=== PATIENT | female | born 1985 | race Caucasian/White ===

== ENCOUNTER → 2016-04-02 | Outpatient (CLI) | payer BC | END | disposition home or self-care (01) | LOC: C.LAB1850 11:34 | PROVIDERS: ATTEND Obstetrics & Gynecology | DX: O02.1 Missed abortion (principal) ==

== ENCOUNTER → 2016-06-21 | Outpatient (CLI) | payer BC ==
[~2016-06-21] MED LIST: FLUT0.15 NAE; PRENTAB26 PO; SERT-234 PO
[2016-06-21 17:35] LABS: URINE APPEARANCE CLEAR (CLEAR); URINE BILIRUBIN NEG (NEG); URINE COLOR YELLOW; URINE NITRITE NEG (NEG); URINE SPECIFIC GRAVITY 1.007 (1.000-1.030); UROBILINOGEN NEG (NEG)
[2016-06-21 17:36] LABS: MANUAL MICROSCOPIC REQUIRED? NO; REVIEW REQ? NO
== END | disposition home or self-care (01) ==
LOC: C.LABSPEC 17:16
PROVIDERS: ATTEND Obstetrics & Gynecology
DX: O09.299 Supervision of pregnancy with other poor reproductive or obstetric history, unspecified trimester (principal); Z3A.00 Weeks of gestation of pregnancy not specified

== ENCOUNTER → 2016-06-28 | Outpatient (CLI) | payer BC | LOC: C.PAPS 08:53 | PROVIDERS: ATTEND Obstetrics & Gynecology | DX: O09.299 Supervision of pregnancy with other poor reproductive or obstetric history, unspecified trimester (principal); Z3A.00 Weeks of gestation of pregnancy not specified ==

== ENCOUNTER → 2016-07-26 | Outpatient (CLI) | payer BC ==
[2016-07-26 12:26] LABS: BASO % 0.5 %; BASO ABS # 0.02 K/uL (0-0.2); COMPLETE YES; EOS % 1.2 %; HEMATOCRIT 37.4 % (37-47); IG% 0.2 %; LYMPH % 33.3 %; LYMPH ABS # 1.38 K/uL (1.2-3.4); MEAN CELL VOLUME 89.5 fL (80-100); MEAN CORPUSCULAR HEMOGLOBIN 30.9 pg (25-34); MEAN CORPUSCULAR HGB CONC 34.5 g/dl (32-36); MEAN PLATELET VOLUME 9.4 fL (7.4-10.4); NEUT % 57.8 %; PLATELET COUNT 200 K/uL (130-400); RED BLOOD COUNT 4.18 M/uL (4.2-5.4); WHITE BLOOD COUNT 4.15 K/uL (4.8-10.8)
[2016-07-29 12:10] LABS: CHLAMYDIA TRACH RNA*** NOT DETECTED (NOT DETECTED); GC (NEIS GONORRHOEAE)RNA** NOT DETECTED (NOT DETECTED)
== END | disposition home or self-care (01) ==
LOC: C.LAB1850 09:29
PROVIDERS: ATTEND Obstetrics & Gynecology
DX: O09.299 Supervision of pregnancy with other poor reproductive or obstetric history, unspecified trimester (principal)

== ENCOUNTER → 2016-08-12 | Outpatient (CLI) | payer BC ==
[2016-08-12 16:31] LABS: URINE APPEARANCE CLEAR (CLEAR); URINE BILIRUBIN NEG (NEG); URINE COLOR YELLOW; URINE NITRITE NEG (NEG); URINE SPECIFIC GRAVITY 1.014 (1.000-1.030); UROBILINOGEN NEG (NEG)
[2016-08-12 16:32] LABS: MANUAL MICROSCOPIC REQUIRED? NO; REVIEW REQ? NO
== END | disposition home or self-care (01) ==
LOC: C.LAB1850 14:50
PROVIDERS: ATTEND Obstetrics & Gynecology
DX: R39.9 Unspecified symptoms and signs involving the genitourinary system (principal)

== ENCOUNTER → 2016-08-23 | Outpatient (CLI) | payer BC ==
[2016-08-23 18:54] LABS: GTGD 50 Grams
== END | disposition home or self-care (01) ==
LOC: C.LAB1850 15:41
PROVIDERS: ATTEND Obstetrics & Gynecology
DX: O09.299 Supervision of pregnancy with other poor reproductive or obstetric history, unspecified trimester (principal); Z3A.00 Weeks of gestation of pregnancy not specified

== ENCOUNTER → 2016-11-22 | Outpatient (CLI) | payer BC ==
[2016-11-22 15:55] LABS: HEMATOCRIT 32.7 % (37-47)
[2016-11-22 16:32] LABS: GTGD 50 Grams
[2016-11-22 17:55] LABS: URINE APPEARANCE CLEAR (CLEAR); URINE BILIRUBIN NEG (NEG); URINE COLOR YELLOW; URINE NITRITE NEG (NEG); URINE PH 5.5 (4.5-7.5); URINE SPECIFIC GRAVITY 1.014 (1.000-1.030); UROBILINOGEN NEG (NEG)
[2016-11-22 17:57] LABS: MANUAL MICROSCOPIC REQUIRED? NO; REVIEW REQ? NO
== END | disposition home or self-care (01) ==
LOC: C.LAB1850 15:09
PROVIDERS: ATTEND Obstetrics & Gynecology
DX: O09.293 Supervision of pregnancy with other poor reproductive or obstetric history, third trimester (principal); Z3A.00 Weeks of gestation of pregnancy not specified

== ENCOUNTER → 2016-12-03 | Outpatient (CLI) | payer BC | END | disposition home or self-care (01) | LOC: C.LAB1850 08:19 | PROVIDERS: ATTEND Obstetrics & Gynecology | DX: O28.1 Abnormal biochemical finding on antenatal screening of mother (principal); Z3A.00 Weeks of gestation of pregnancy not specified ==

== ENCOUNTER 2016-12-07 14:54 | Outpatient (CLI) | payer BC ==
[2016-12-07] MEDS ORDERED: SERT-234 PO (16:09)
[2016-12-07] MEDS ORDERED: FLUT0.15 NAE (16:09)
[2016-12-07] MEDS ORDERED: PRENTAB26 PO (16:09)
== END 2016-12-07 15:26 | disposition home or self-care (01) ==
LOC: C.OPB 14:54 → C.LD 14:54 → C.OPB 15:26
PROVIDERS: ATTEND Obstetrics & Gynecology
DX: O26.853 Spotting complicating pregnancy, third trimester (principal); Z3A.30 30 weeks gestation of pregnancy

== ENCOUNTER 2017-02-14 21:47 | Inpatient (IN) | payer OTHER ==
[~2017-02-14] VITALS: Ht 162.6 cm; Wt 66.8 kg
[2017-02-14] MEDS ORDERED: LACTATED RINGER'S 1000ML 1,000 ML IV PRN (21:56)
[2017-02-14 22:12] LABS: HEMATOCRIT 36.3 % (37-47); HEMOGLOBIN 12.6 g/dL (12.0-16.0); MEAN CELL VOLUME 88.5 fL (80-100); MEAN CORPUSCULAR HEMOGLOBIN 30.7 pg (25-34); MEAN CORPUSCULAR HGB CONC 34.7 g/dl (32-36); MEAN PLATELET VOLUME 11.4 fL (7.4-10.4); PLATELET COUNT 158 K/uL (130-400); RED CELL DISTRIBUTION WIDTH CV 13.1 % (11.5-14.5); RED CELL DISTRIBUTION WIDTH SD 42.5 fL (36.4-46.3); WHITE BLOOD COUNT 6.49 K/uL (4.8-10.8)
[2017-02-14] MEDS ORDERED: PENICILLIN G POTASSIUM IV 6 MU in DEXTROSE 5% 250ML 250 ML IV ONE (22:15)
[2017-02-14] MEDS: LACTATED RINGER'S 1000ML 1,000 ML IV SCH (22:23)
[2017-02-14 22:37] VITALS: Ht 162.6 cm; Wt 66.8 kg
[2017-02-15] VITALS (7 sets, daily range): BP systolic 120–139; BP diastolic 79–88; PULSE 67–80; TEMP 36.5–36.6; O2SAT 96–97
[2017-02-15] MEDS ORDERED: BUPIVACAINE 0.25% 30 ML VIAL ONE (01:00)
[2017-02-15] MEDS ORDERED: FENTANYL CITRATE INJ 50 MCG/1 ML 2 ML VIAL ONE ×2 (01:01→13:26)
[2017-02-15] MEDS ORDERED: EpHEDrine SULFATE INJ 50 MG/ML AMP ONE (01:01)
[2017-02-15] MEDS ORDERED: FENTANYL 2MCG/ML ROPIV 1.25MG/ML 100ML BAG EPI ONE (01:01)
[2017-02-15] MEDS ORDERED: LACTATED RINGER'S 1000ML 500 ML IV PRN ×3 (02:06→14:43)
[2017-02-15] MEDS ORDERED: NALOXONE HCL INJ 1 MG in SODIUM CHLORIDE 0.9% 1000ML 1,000 ML IV PRN ×5 (02:06→14:43)
[2017-02-15] MEDS: PENICILLIN G POTASSIUM IV 3 MU in DEXTROSE 5% 100ML 100 ML IV PRN ×3 (02:14→10:33)
[2017-02-15] MEDS ORDERED: NALBUPHINE HCL INJ 10 MG/ML AMP IV PRN ×2 (02:15→14:45)
[2017-02-15] MEDS ORDERED: DiphenhydrAMINE HCL 50 MG/ML VIAL IV PRN ×2 (02:15→14:45)
[2017-02-15] MEDS ORDERED: NALOXONE HCL INJ 0.4 MG/1 ML VIAL/CARP IV PRN (02:15)
[2017-02-15] MEDS ORDERED: PROMETHAZINE HCL INJ 6.25 MG in SODIUM CHLORIDE 0.9% 50ML 50 ML IV PRN (02:15)
[2017-02-15] MEDS ORDERED: ONDANSETRON INJ 2 MG/ML 2 ML VIAL IV PRN ×2 (02:15→14:45)
[2017-02-15] MEDS ORDERED: EpHEDrine SULFATE INJ 50 MG/ML AMP IV PRN ×2 (02:15→14:45)
[2017-02-15] MEDS ORDERED: OXYTOCIN 30 UNITS/500ML NSS IV PRN (02:45)
[2017-02-15] MEDS ORDERED: OXYTOCIN 30 UNITS/500ML NSS IV ONE (03:27)
[2017-02-15] MEDS: FENTANYL 2MCG/ML ROPIV 1.25MG/ML 100ML BAG EPI PRN ×3 (06:04→10:18)
[2017-02-15] MEDS: LACTATED RINGER'S 1000ML 1,000 ML IV SCH ×2 (06:13→09:25)
[2017-02-15] MEDS ORDERED: CITRIC ACID/SODIUM CITRATE 15 ML UDC ONE (13:00)
[2017-02-15] MEDS ORDERED: LACTATED RINGER'S 1000ML 1,000 ML IV SCH ×2 (13:02→14:36)
[2017-02-15] MEDS ORDERED: CITRIC ACID/SODIUM CITRATE 15 ML UDC PO ONE (13:15)
[2017-02-15] MEDS ORDERED: CEFAZOLIN IV 2,000 MG in SYRINGE 0 ML IV ONE (13:15)
[2017-02-15] MEDS ORDERED: LIDOCAINE/EPINEPHRINE 2% 1:200,000 20 ML SDV ONE (13:23)
[2017-02-15] MEDS ORDERED: OXYTOCIN INJ 10 UNITS/ML VIAL ONE ×2 (13:24→14:26)
[2017-02-15] MEDS ORDERED: PHENYLEPHRINE 100MCG/ML 5ML SYR ONE (14:12)
[2017-02-15] MEDS ORDERED: MoRPHine SULFATE PF 1 MG/ML 10 ML AMP/VIAL ONE (14:13)
[2017-02-15] MEDS ORDERED: MIDAZOLAM HCL 1 MG/ML 2ML VIAL ONE (14:22)
[2017-02-15] MEDS ORDERED: OXYTOCIN INJ 30 UNITS in LACTATED RINGER'S 1000ML 1,000 ML IV SCH (14:36)
--- NOTE | 2017-02-15 14:38 | [facility] Post Operative Brief Note ---
Immediate Operative Summary Operative Date Feb 15, 2017. Pre-Operative Diagnosis [facility] @ Term, Labor, Deep Transverse arrest; Failure to Progress Post-Operative Diagnosis Same Procedure(s) Performed Primary Caesarean Section; Delivery of a live male infant Surgeon Dr Jackson Computer Repairer Surgeon(s) Caitlin Palencia RN Estimated Blood Loss 600 cc Findings LOT with left asynclitism. Normal ovaries and tubes. Specimens cord blood placenta-exam arterial and venous gases Complication(s) None Disposition L&D
[2017-02-15] MEDS ORDERED: SODIUM CHLORIDE 0.9% 1000ML 1,000 ML IV PRN (14:43)
[2017-02-15] MEDS ORDERED: NALOXONE HCL INJ 0.08 MG in SYRINGE 1.8 ML IV PRN (14:43)
[2017-02-15] MEDS ORDERED: DC INTRASPINAL MORPHINE SCH (14:45)
[2017-02-15] MEDS ORDERED: BENZOCAINE 20% AER SPR 82.5 GM CAN EXT PRN (14:45)
[2017-02-15] MEDS ORDERED: MoRPHine SULFATE PF 1 MG/ML 10 ML AMP/VIAL EPI PRN (14:45)
[2017-02-15] MEDS ORDERED: LANOLIN OINT EXT PRN (14:45)
[2017-02-15] MEDS ORDERED: HYDROCORTISONE ACETATE 25 MG SUPP PR PRN (14:45)
[2017-02-15] MEDS ORDERED: NO NARCOTICS OR SEDATIVES SCH (14:45)
[2017-02-15] MEDS ORDERED: PROMETHAZINE HCL INJ 25 MG in SODIUM CHLORIDE 0.9% 50ML 50 ML IV PRN (14:45)
[2017-02-15] MEDS ORDERED: NALOXONE HCL 0.4 MG/1 ML VIAL/CARP IV PRN (14:45)
[2017-02-15] MEDS ORDERED: SUPERCREAM 0.870 % 15GM JAR EXT PRN (14:45)
--- NOTE | 2017-02-15 14:46 | Anesthesia Procedure Note ---
Anesthesia Epidural Removal Nt Date & Time Feb 15, 2017 at 14:46 Vital Signs Pain Intensity: 0.0 Notes Mental Status: alert / awake / arousable, participated in evaluation Nausea / Vomiting: adequately controlled Pain: adequately controlled Airway Patency, RR, SpO2: stable & adequate BP & HR: stable & adequate Hydration State: stable & adequate Neuraxial Anesthesia: was administered Anesthetic Complications: no major complications apparent, pt satisfied with anesthetic care Epidural: removed without complications, with tip intact
[2017-02-15] MEDS ORDERED: DIPHTHERIA/TETANUS/PERTUSSIS 0.5 ML SYR/VIAL IM. ONE (15:15)
--- NOTE | 2017-02-15 15:16 | Anesthesiology Progress Note ---
Anesthesia Post Op Note Date & Time Feb 15, 2017 at 15:15 Vital Signs Pain Intensity: 0.0 Notes Mental Status: alert / awake / arousable, participated in evaluation Pt Amnestic to Procedure: No Nausea / Vomiting: adequately controlled Pain: adequately controlled Airway Patency, RR, SpO2: stable & adequate BP & HR: stable & adequate Hydration State: stable & adequate Neuraxial Anesthesia: was administered, sensory block is resolving Anesthetic Complications: no major complications apparent
[2017-02-15] MEDS: SIMETHICONE 80 MG CHEW PO SCH ×2 (17:00→20:24)
[2017-02-15] MEDS: KETOROLAC TROMETHAMINE 30 MG/ML VIAL IV. PRN (18:14)
--- NOTE | 2017-02-15 19:37 | DELIVERY SUMMARY ---
DATE OF OPERATION: 02/15/2017 PREOPERATIVE DIAGNOSES: 1. Rob intrauterine at 40 and 4/7 weeks. 2. Onset of labor. 3. Deep transverse arrest. 4. Failure to progress. POSTOPERATIVE DIAGNOSES: Same. PROCEDURE: Primary low transverse section with 2-layer uterine closure and delivery of a live male . SURGEON: Gena Jackson MD CHIP PERSON: Caitlin Christian RN ESTIMATED BLOOD LOSS: 600 mL. FINDINGS: in LOT presentation with left asynclitism, normal ovaries and tubes. SPECIMENS: Cord blood and placenta for exam as well as cord gases. COMPLICATIONS: None. DISPOSITION: Stable in labor and delivery. DESCRIPTION: Tomasa is 31-year-old G2, P0-0-1-0, who was admitted by my partner Dr. Sanchez with labor. I assumed care of patient as she was becoming completely dilated. She did begin her second stage of labor at about 9:30 in the morning. She pushed very well for 3 hours. Unfortunately, the infant rotated from LOP presentation to LOT presentation and stayed there. She was unable to effect delivery despite 3 hours of maximal maternal effort. heart tones were category 2 throughout most of her second stage, however, maintained at essentially normal baseline and moderate variability with accels to the end. Given this infant's presentation, I did not feel that operative delivery would very likely to be successful, but we did discuss that option as well as moving directly to and patient elected to move directly to . She was therefore brought to the operating room, placed on the table in the supine position with a leftward tilt, prepped and draped in standard sterile fashion, and a hard timeout was taken prior to beginning. Please note that before beginning the section, there was already noted to be che Canelo-Aid colored urine in the Barksdale catheter tubing, we anticipate that this is because of 3 hours of pushing with a certain amount of ureteral trauma. Once adequate anesthesia was demonstrated, a Pfannenstiel incision was then made, this was carried down sharply through the subcutaneous tissue to the fascia which was incised and then extended using Amador scissors. The fascia was sharply and bluntly dissected off the underlying rectus, which were naturally . The peritoneum was then entered bluntly. A bladder retractor was placed and a bladder flap was created. A lower transverse uterine incision was made. Upon entry to the cavity, thick meconium was encountered. This was a surprise, as fluid had been clear as seen from the vaginal approach at the time we moved patient to the operating room. The 's right shoulder was immediately beneath the hysterotomy. The infant's right ear was encountered as my hand moved down into the lower uterine segment and with some effort I was able to elevate the head from the maternal pelvis and elevated through the hysterotomy. Of note, at times during this effort, the infant's right hand delivered through the hysterotomy and had to be gently replaced in a physiologic manner. Once the was delivered using mild fundal pressure, the cord was doubly clamped and cut. The made respiratory efforts while it was still on the sterile field and Dr. Amirah Wren was scrubbed and working with the before it was even clamped and cut. The infant was then taken to the warmer by Dr. Wren. The placenta after the cord gases were isolated the placenta was then manually extracted. The uterus was gently exteriorized and the hysterotomy was closed in a typical 2-layer fashion with 1 Vicryl suture in a running locked manner with an imbricating second layer. At the completion of closure, the hysterotomy was hemostatic and well approximated. The uterus was anteflexed and the posterior gutter was cleared of all clot and debris with gentle irrigation. Both ovaries and tubes were seen to be normal. The uterus was then reapproximated to the abdomen. The lateral gutters were cleared of all clot and debris, and the hysterotomy was examined one final time and found to be again hemostatic and well approximated. The rectus muscles were allowed to fall together naturally and the fascia was then closed using a 1 Vicryl in a running nonlocked manner. The subcutaneous tissue was then copiously irrigated and closed with 3-0 chromic with the skin being closed in 4-0 Monocryl, and a Dermabond dressing was then applied. The Barksdale continued to be draining red-tinged urine as had been seen prior to the beginning of the surgery. The patient was then transferred in stable condition to the recovery room. I attest to the content of the Intraoperative Record and any orders documented therein. Any exception s are noted below.
[2017-02-15] MEDS: DOCUSATE SODIUM 100 MG CAP PO SCH (20:24)
[2017-02-16] VITALS (11 sets, daily range): BP systolic 110–133; BP diastolic 65–87; PULSE 68–86; TEMP 36.5–36.8; O2SAT 97–100
[2017-02-16 06:53] LABS: HEMATOCRIT 30.6 % (37-47); HEMOGLOBIN 10.5 g/dL (12.0-16.0); MEAN CORPUSCULAR HEMOGLOBIN 30.5 pg (25-34); MEAN CORPUSCULAR HGB CONC 34.3 g/dl (32-36); MEAN PLATELET VOLUME 10.8 fL (7.4-10.4); PLATELET COUNT 104 K/uL (130-400); RED CELL DISTRIBUTION WIDTH CV 13.3 % (11.5-14.5); RED CELL DISTRIBUTION WIDTH SD 43.1 fL (36.4-46.3)
[2017-02-16 07:22] LABS: BASO % 0.2 %; BASO ABS # 0.02 K/uL (0-0.2); IG# 0.01 K/uL (0.00-0.02); LYMPH % 17.6 %; MONO % 4.1 %; MONO ABS # 0.42 K/uL (0.11-0.59); NEUT ABS # 7.85 K/uL (1.4-6.5)
[2017-02-16] MEDS: SIMETHICONE 80 MG CHEW PO SCH ×4 (07:34→20:10)
[2017-02-16] MEDS: FERROUS SULFATE 325 MG TAB PO SCH ×2 (07:34→07:56)
[2017-02-16] MEDS: DOCUSATE SODIUM 100 MG CAP PO SCH ×2 (07:34→20:10)
[2017-02-16] MEDS: PRENATAL VITAMIN TAB PO SCH (07:34)
[2017-02-16] MEDS: SERTRALINE HCL 100 MG TAB PO SCH (07:34)
[2017-02-16] MEDS: FLUTICASONE PROPIONATE NA SPR 16 GM BTL NAE SCH (07:34)
[2017-02-16] MEDS: KETOROLAC TROMETHAMINE 30 MG/ML VIAL IV. PRN (07:52)
[2017-02-16] MEDS ORDERED: PRENATAL VITAMIN TAB PO SCH (08:00)
--- NOTE | 2017-02-16 08:22 | Progress Note ---
Subjective Feb 16, 2017. Subjective conversation w/ patient, physical exam Ambulation: limited ambulation Voiding: thomson catheter in place Passing Gas: No Diet Tolerance: Clear Liquids Lochia: Moderate Feeding Type: Breast Feeding Review of Systems Constitutional: No fever, No chills Respiratory: No cough Cardiac: No chest pain Abdomen: No nausea, No vomiting Objective Vital Signs Date Time Temp Pulse Resp B/P (MAP) Pulse Ox O2 Delivery O2 Flow Rate FiO2 02/16/17 07:18 36.8 20 114/73 (87) 97 Room Air 02/16/17 05:05 16 98 02/16/17 05:05 36.5 71 16 126/74 (91) 98 Room Air 02/15/17 23:15 36.6 67 16 139/88 (105) 96 Room Air 02/15/17 23:15 Room Air 02/15/17 22:00 16 96 02/15/17 21:00 16 97 02/15/17 20:00 16 97 02/15/17 19:20 36.6 78 16 136/82 (100) 96 Room Air 02/15/17 19:20 16 96 02/15/17 19:20 Room Air 02/15/17 18:30 20 97 02/15/17 18:20 97 Room Air 02/15/17 18:20 36.5 80 20 120/79 (93) 97 Room Air Physical Exam General Appearance: WELL-APPEARING, NO APPARENT DISTRESS Respiratory/Chest: no respiratory distress, no accessory muscle use Cardiovascular: no edema Abdomen: non tender, soft Fundus: Firm Incision Description: Clean, Dry & Intact Extremities: no calf tenderness Laboratory Results Last 24 Hours Test 02/16/17 06:26 White Blood Count 10.20 K/uL Red Blood Count 3.44 M/uL Hemoglobin 10.5 g/dL Hematocrit 30.6 % Mean Corpuscular Volume 89.0 fL Mean Corpuscular Hemoglobin 30.5 pg Mean Corpuscular Hemoglobin Concent 34.3 g/dl Platelet Count 104 K/uL Mean Platelet Volume 10.8 fL Neutrophils (%) (Auto) 77.0 % Lymphocytes (%) (Auto) 17.6 % Monocytes (%) (Auto) 4.1 % Eosinophils (%) (Auto) 1.0 % Basophils (%) (Auto) 0.2 % Neutrophils # (Auto) 7.85 K/uL Lymphocytes # (Auto) 1.80 K/uL Monocytes # (Auto) 0.42 K/uL Eosinophils # (Auto) 0.10 K/uL Basophils # (Auto) 0.02 K/uL RDW Standard Deviation 43.1 fL RDW Coefficient of Variation 13.3 % Immature Granulocyte % (Auto) 0.1 % Immature Granulocyte # (Auto) 0.01 K/uL Assessment and Plan Problem List Medical Problems: (1) Acute anxiety Status: Acute (2) Status: Acute Post-Op Day#: 1 Continue Routine Care: POD#1, thomson still in place, not ambulating yet. TOV, OOB, advance diet, pain mgmt. Attempting with supplementation.
[2017-02-16] MEDS ORDERED: MEPERIDINE HCL 50 MG/ML CARP IV PRN ×2 (10:00)
[2017-02-16] MEDS ORDERED: PROMETHAZINE HCL INJ 25 MG in SODIUM CHLORIDE 0.9% 50ML 50 ML IV PRN (10:00)
[2017-02-16] MEDS ORDERED: ONDANSETRON INJ 2 MG/ML 2 ML VIAL IV PRN (10:00)
[2017-02-16] MEDS ORDERED: OXYCODONE/ACETAMINOPHEN 5-325 TAB PO PRN (10:00)
[2017-02-16] MEDS ORDERED: DiphenhydrAMINE HCL 50 MG/ML VIAL IV PRN (10:00)
[2017-02-16] MEDS ORDERED: KETOROLAC TROMETHAMINE 30 MG/ML VIAL IV. PRN (10:00)
[2017-02-16] MEDS: IBUPROFEN 600 MG TAB PO PRN ×3 (12:16→22:00)
[2017-02-16] MEDS: OXYCODONE/ACETAMINOPHEN 5-325 TAB PO PRN ×3 (12:17→22:01)
[2017-02-16] MEDS ORDERED: NURSING DECISION MEDICATION ORDER SCH (18:30)
[2017-02-16] MEDS ORDERED: SODIUM CHLORIDE 0.65% NA SOLN 45 ML (OCEAN) PRN (18:30)
--- NOTE | 2017-02-16 20:12 | Discharge Instructions ---
Discharge Instructions Date of Service Feb 16, 2017. Admission Reason for Admission: Check Labor Check Rupture Discharge Discharge Diagnosis / Problem: recovery from csection Discharge Goals Goal(s): Routine recovery after Medications Continue Dispensed Medications: supercream, dermaplast, tucks, lansinoh Activity Recommendations Activity Limitations: per Instructions/Follow-up section . Instructions / Follow-Up Instructions / Follow-Up ACTIVITY RECOMMENDATIONS: * Gradual return to full activity over the next 2-3 weeks. * No lifting - nothing heavier than baby over the next 2-3 weeks. * Do not engage in vigorous exercise, sexual activity or sports until cleared by your physician. * Do not drive or operate any motorized equipment until cleared by your physician. * You may shower/bathe daily. MEDICATIONS: For discomfort or pain, you may use Acetaminophen (Tylenol), Ibuprofen (Advil), or Naproxen (Aleve) following the package directions. For constipation you may use Colace following the package directions. BREAST CARE: If you are not breast feeding: * Wear a supportive bra 24 hours a day for one to two weeks. * Avoid stimulating your breasts and nipples as much as possible during the first few weeks after delivery. * When taking a shower, have the warm water hit your back, not breasts. * When your breasts feel full, apply ice packs. Usually three to four times a day helps ease the discomfort. * Take a mild pain medication (Tylenol / Motrin) when you are uncomfortable. If breast feeding: * Use breast milk to lubricate nipples. Lansinoh cream may be used for sore nipples. You do not need to remove cream prior to breast feeding. If using a different brand of cream, check the label for directions regarding removal of cream prior to nursing. * Wear a supportive bra. * If having problems with breasts or breast feeding, call a resourcing consultant or your health care provider. SPECIAL CARE INSTRUCTIONS: When you are discharged from the hospital, it is important for you to follow the instructions listed below: * During the first week at home, you should be able to care for yourself and your baby. In addition, the usual light household activities are encouraged. * Limit your activities to the way you feel. Do not try to clean the house or move furniture. Be sensible. * If you actively engage in sports and have done so up until the time of your delivery, you may resume these activities as soon as you feel able. This may take up to one month or even longer. Use good judgment. * Continue to take your vitamins for at least six weeks after the of your baby. * Your diet need not be limited unless you were on a special diet before your delivery. Breast-feeding mothers need around 2500 calories per day and at least 64-80 ounces of fluid per day (8 to 10 glasses). * You should eat foods from the four major food groups. Crash diets or fad diets are to be avoided. Eating lean meats, fresh fruits and vegetables, low-fat dairy products, high fiber foods and a regular exercise program, will help you get back to your pre- weight without putting your health at risk. * Constipation is sometimes a problem after delivery. Take a mild laxative as needed. If breast feeding, Milk of Magnesia is acceptable to use. You may use a suppository or Fleets enema. * A daily shower or tub bath is suggested. Wash incision daily with warm soapy water and pat dry. It doesn't need to be covered unless drainage is present. * A bloody vaginal discharge will usually continue until around four weeks . A small amount of bleeding may continue for as long as six weeks. Vaginal discharge changes from the bright red bleeding after delivery to pink then brownish and finally yellowish-pink before becoming white and disappearing. * Bleeding may increase with activity. Your first period may come in 4-8 weeks. If you are breast feeding, your period may be delayed even longer. * [place] (sex) can begin whenever both you and your partner feel comfortable and do not have any form of genital infection. It is recommended that you wait at least six weeks for internal and external healing to occur. If you have questions, please talk to your health care practitioner. A condom should be used to prevent infection and . * Foreplay, gentle intercourse and lubrication is very important the first several times to prevent pain. A water-based lubricant such as K-Y jelly or Astroglide may be used. * If you have RH negative blood and your baby is RH positive, you will receive RHOGAM by injection prior to discharge. The nurse will give you a card to keep with you that has the date and place that you received RHOGAM after delivery. * During your care, you had a Rubella screen done to check for the presence of rubella antibodies in your blood. If your test was negative, you will receive a Rubella vaccine prior to discharge. This vaccine may cause a fever, soreness at the injection site and flu-like symptoms. If these symptoms persist, notify your health care practitioner. is not advised for one month after a Rubella vaccine. * Verbalizes understanding of car seat law as reviewed with patient nursing. * Car Seat hand-out given and reviewed with patient by nursing. * Shaken baby information reviewed with patient by nursing. Call you doctor if: * Heavy bleeding (saturating several pads an hour) or passing clots the size of your fist. * A fever >101 degrees F (38.3 degrees C) on two occasions four hours apart and /or chills. * Unusual pain in the pelvic or vaginal areas. * Call the doctor for any increased redness, drainage or swelling around the incision and any pain unrelieved by prescribed pain medication. * "Baby Blues" lasting longer than two weeks. If you have any questions or concerns, call your health care practitioner at . FOLLOW UP VISIT: * Please call the office at to schedule a 6 week examination. It is important you keep this appointment. It is important for you to make arrangements for either yearly or twice yearly check-ups thereafter. Current Hospital Diet Patient's current hospital diet: Regular OB Diet Discharge Diet Recommended Diet: Regular OB Diet Procedures Procedures Performed: Primary Caesarean Section; Delivery of a live male infant Pending Studies Studies pending at discharge: no Medical Emergencies . Who to Call and When: Medical Emergencies: If at any time you feel your situation is an emergency, please call [phone] immediately. . Non-Emergent Contact Non-Emergency issues call your: User Experience Architect . . "Provider Documentation" section prepared by Sandeep Gonzales. . VTE Core Measure Inpt VTE Proph given/why not?: SCD's
[2017-02-16] MEDS ORDERED: ZOLPIDEM TARTRATE 5 MG TAB PO PRN (22:00)
[2017-02-17] MEDS: IBUPROFEN 600 MG TAB PO PRN ×4 (04:02→20:12)
[2017-02-17] MEDS: OXYCODONE/ACETAMINOPHEN 5-325 TAB PO PRN ×3 (04:02→16:01)
--- NOTE | 2017-02-17 06:48 | OB/GYN Progress Note ---
BOATING SAFETY OFFICER Progress Note Date of Service Feb 17, 2017. Subjective conversation w/ patient, conversation w/ family, physical exam, chart review, lab review Ambulation: ambulating normally Voiding: no voiding problems Passing Gas: Yes Diet Tolerance: Regular Diet Lochia: Moderate Feeding Type: Breast Feeding Pain: controlled with percocet and motrin q 4h Review of Systems Constitutional: No fever, No chills Respiratory: No cough, No shortness of breath Cardiac: No chest pain Abdomen: + nausea, No pain, No vomiting Female : No dysuria Objective Vital Signs Date Time Temp Pulse Resp B/P (MAP) Pulse Ox O2 Delivery O2 Flow Rate FiO2 02/16/17 23:30 36.8 81 16 110/65 (80) 97 Room Air 02/16/17 23:30 97 Room Air 02/16/17 16:20 Room Air 02/16/17 16:20 36.5 68 18 133/85 (101) 100 Room Air 02/16/17 12:10 36.8 85 18 130/87 (101) Room Air 02/16/17 10:00 16 98 02/16/17 09:00 18 99 02/16/17 08:28 86 02/16/17 08:00 18 97 02/16/17 07:40 97 Room Air 02/16/17 07:18 36.8 20 114/73 (87) 97 Room Air 02/16/17 07:00 18 98 Physical Exam General Appearance: WELL-APPEARING, WD/WN, NO APPARENT DISTRESS Respiratory/Chest: lungs clear, normal breath sounds Cardiovascular: regular rate, rhythm Abdomen: non tender, soft Fundus: Firm Incision Description: Clean, Dry & Intact, Ecchymosis (below incision ) Extremities: normal inspection, no pedal edema, no calf tenderness Laboratory Results Last 24 Hours Test 02/17/17 04:44 Assessment and Plan Post-Op Day Number: 2 Continue Routine Care: 31 y female now 1 via c section Post op day 2. GBS+/A+/RI. Pt is doing well. Does complain of nausea. Hgb 12.6 (02/14/17) 10.5 (02/16/17), today pending. Plan; 1. Continue pp care; ambulate, control pain, encourage BF, monitor lochia 2. Discussed dc instructions with the patient Resident Physician Supervision Note: I interviewed and examined the patient. Discussed with Dr. Gonzales and agree with findings and plan as documented in the note. Any exceptions or clarifications are listed here: [None] Documented By: Gena Jackson
[2017-02-17 07:32] VITALS: BP 125/78; PULSE 81; TEMP 36.5
[2017-02-17] MEDS: FLUTICASONE PROPIONATE NA SPR 16 GM BTL NAE SCH (08:28)
[2017-02-17] MEDS: SIMETHICONE 80 MG CHEW PO SCH ×4 (08:28→20:09)
[2017-02-17] MEDS: FERROUS SULFATE 325 MG TAB PO SCH (08:29)
[2017-02-17] MEDS: DOCUSATE SODIUM 100 MG CAP PO SCH ×2 (08:29→20:10)
[2017-02-17] MEDS: SERTRALINE HCL 100 MG TAB PO SCH (08:29)
[2017-02-17] MEDS: PRENATAL VITAMIN TAB PO SCH (08:29)
[2017-02-17 08:33] LABS: BASO % 0.3 %; BASO ABS # 0.02 K/uL (0-0.2); EOS % 1.9 %; EOS ABS # 0.15 K/uL (0-0.5); IG# 0.02 K/uL (0.00-0.02); LYMPH % 20.8 %; MEAN CELL VOLUME 90.3 fL (80-100); MEAN CORPUSCULAR HEMOGLOBIN 31.3 pg (25-34); MEAN CORPUSCULAR HGB CONC 34.6 g/dl (32-36); MEAN PLATELET VOLUME 10.2 fL (7.4-10.4); MONO % 3.9 %; NEUT % 72.8 %; NEUT ABS # 5.61 K/uL (1.4-6.5); PLATELET COUNT 114 K/uL (130-400); RED CELL DISTRIBUTION WIDTH CV 13.7 % (11.5-14.5)
[2017-02-17 15:45] VITALS: BP 126/76; PULSE 78; TEMP 36.7; O2SAT 99
[2017-02-17] MEDS ORDERED: MAGNESIUM HYDROXIDE SUSP 30 ML UDC PO PRN (16:30)
[2017-02-17] MEDS ORDERED: BISACODYL 5 MG TABEC PO PRN (16:30)
[2017-02-17 23:45] VITALS: BP 120/76; PULSE 70; TEMP 36.6
[2017-02-18] MEDS: IBUPROFEN 600 MG TAB PO PRN ×3 (01:28→12:37)
[2017-02-18] MEDS: OXYCODONE/ACETAMINOPHEN 5-325 TAB PO PRN ×3 (01:29→12:39)
--- NOTE | 2017-02-18 06:19 | OB/GYN Progress Note ---
ELECTRONIC PUBLISHING SPECIALIST Progress Note Date of Service Feb 18, 2017. Subjective conversation w/ patient, conversation w/ family, physical exam, chart review, lab review Ambulation: ambulating normally Voiding: no voiding problems Passing Gas: Yes Diet Tolerance: Regular Diet Lochia: Small Feeding Type: Breast Feeding Pain: well controlled with motrin/percocet Review of Systems Constitutional: No fever Respiratory: No cough, No shortness of breath Cardiac: No chest pain, No palpitations Abdomen: No pain, No nausea, No vomiting Female : No dysuria Objective Vital Signs Date Time Temp Pulse Resp B/P (MAP) Pulse Ox O2 Delivery O2 Flow Rate FiO2 02/17/17 23:45 Room Air 02/17/17 23:45 36.6 70 18 120/76 (91) Room Air 02/17/17 15:45 36.7 78 18 126/76 (93) 99 Room Air 02/17/17 15:45 99 Room Air 02/17/17 07:55 Room Air 02/17/17 07:32 36.5 81 16 125/78 (94) Room Air Physical Exam General Appearance: WELL-APPEARING, WD/WN, NO APPARENT DISTRESS Respiratory/Chest: lungs clear, normal breath sounds Cardiovascular: regular rate, rhythm, no murmur Abdomen: non tender, soft Fundus: Firm Incision Description: Clean, Dry & Intact, Ecchymosis (below incision line) Laboratory Results Last 24 Hours Test 02/17/17 08:21 White Blood Count 7.70 K/uL Red Blood Count 2.88 M/uL Hemoglobin 9.0 g/dL Hematocrit 26.0 % Mean Corpuscular Volume 90.3 fL Mean Corpuscular Hemoglobin 31.3 pg Mean Corpuscular Hemoglobin Concent 34.6 g/dl Platelet Count 114 K/uL Mean Platelet Volume 10.2 fL Neutrophils (%) (Auto) 72.8 % Lymphocytes (%) (Auto) 20.8 % Monocytes (%) (Auto) 3.9 % Eosinophils (%) (Auto) 1.9 % Basophils (%) (Auto) 0.3 % Neutrophils # (Auto) 5.61 K/uL Lymphocytes # (Auto) 1.60 K/uL Monocytes # (Auto) 0.30 K/uL Eosinophils # (Auto) 0.15 K/uL Basophils # (Auto) 0.02 K/uL RDW Standard Deviation 45.0 fL RDW Coefficient of Variation 13.7 % Immature Granulocyte % (Auto) 0.3 % Immature Granulocyte # (Auto) 0.02 K/uL Assessment and Plan Post-Op Day Number: 2 Continue Routine Care: 31 y female now 1 via c section Post op day 3. GBS+/A+/RI. Pt is doing well clinically. Hgb 12.6 (02/14/17) 10.5 (02/16/17), 9.0 (02/17/17). No sx/sx of anemia. Mild ecchymosis below incision Plan; 1. Discussed discharge instructions with the patient 2. Patient is doing well clinically, ready for DC. 3. Continue PNV, Fe supplementation Resident Physician Supervision Note: I interviewed and examined the patient. Discussed with Dr. Gonzales and agree with findings and plan as documented in the note. Any exceptions or clarifications are listed here: D/C instructions/ Rx given to patient Documented By: Giovani Teresa
[2017-02-18] MEDS ORDERED: OXYC-57 PO (06:59)
[2017-02-18] MEDS ORDERED: MTR600X PO (06:59)
[2017-02-18 07:54] VITALS: BP 112/74; PULSE 71; TEMP 36.4
[2017-02-18] MEDS: SIMETHICONE 80 MG CHEW PO SCH ×2 (08:31→12:37)
[2017-02-18] MEDS: DOCUSATE SODIUM 100 MG CAP PO SCH (08:31)
[2017-02-18] MEDS: FERROUS SULFATE 325 MG TAB PO SCH (08:31)
[2017-02-18] MEDS: FLUTICASONE PROPIONATE NA SPR 16 GM BTL NAE SCH (08:31)
[2017-02-18] MEDS: PRENATAL VITAMIN TAB PO SCH (08:32)
[2017-02-18] MEDS: SERTRALINE HCL 100 MG TAB PO SCH (08:32)
[2017-02-18 15:16] VITALS: BP_DIAS 74; PULSE 71; TEMP 36.4
== END 2017-02-18 15:15 | disposition home or self-care (01) | DRG 766 ==
LOC: C.OPB 21:47 → C.LD 21:47 → C.OPB 21:57 → C.LD 21:57 → C.OBG 02-15 18:43
PROVIDERS: ADMIT Obstetrics & Gynecology; ATTEND Obstetrics & Gynecology
PROC: 10D00Z1 Extraction of Products of Conception, Low, Open Approach (ICD-10-PCS; principal; 2017-02-15 13:09)
DX: O62.1 Secondary uterine inertia (principal); O76 Abnormality in fetal heart rate and rhythm complicating labor and delivery; O77.0 Labor and delivery complicated by meconium in amniotic fluid; O99.344 Other mental disorders complicating childbirth; F41.9 Anxiety disorder, unspecified; F42.9 Obsessive-compulsive disorder, unspecified; F32.9 Major depressive disorder, single episode, unspecified; Z22.330 Carrier of Group B streptococcus; Z79.899 Other long term (current) drug therapy; Z3A.40 40 weeks gestation of pregnancy; Z37.0 Single live birth

== ENCOUNTER 2020-08-05 01:39 | Inpatient (IN) ==
[2020-08-05] MEDS ORDERED: PENICILLIN G POTASSIUM 6 MU in DEXTROSE 5% 250 ML IV STA (02:03)
[2020-08-05] MEDS ORDERED: OXYTOCIN 30 UNITS/500 ML BAG IV PRN ×2 (02:03→03:33)
[2020-08-05] MEDS ORDERED: LACTATED RINGER'S 1,000 ML IV PRN (02:03)
[2020-08-05] MEDS ORDERED: SODIUM CHLORIDE 0.9% 250 ML IV PRN (02:06)
[2020-08-05] MEDS ORDERED: LIDOCAINE 1% LOCAL 20 ML VIAL ONE (02:34)
[2020-08-05] MEDS: SILVER NITR/POTASSIUM NITRATE APPLICATOR ONE ×2 (03:00→05:43)
--- NOTE | 2020-08-05 03:07 | History & Physical Report ---
Date of Service August 05, 2020 Assessment & Plan (1) Encounter for supervision of normal in multigravida, antepartum: Patient was very uncomfortable on arrival to L&D. Exam upon arrival revealed head 1+ station, patient feeling strong urge to push. Upon discussion of whether she wanted to deliver vaginally or undergo repeat section, patient wanted baby out as quickly as possible and whichever would deliver fastest. She had previously signed consent in office. Unable to really sign another consent in hospital due to her significant discomfort, and RN actively trying to place IV in right arm. Patient signed with left hand and gave her verbal consent for attempt at . No time for labs or anesthesia consult prior to patient feeling intense urge to push. 2u PRBC ordered in case it would be needed with . (2) Previous delivery affecting , antepartum: Admission and Anticipated Discharge Date Admission Date: August 05, 2020 History of Present Illness Chief Complaint: labor Primary Care Provider: Reina Jeronimo, DO Documentation performed after the fact, as I was performing direct patient care. 35yo @ 37 6/, presented in spontaneous labor. She states ROM at approx 10:15pm with quick onset of contractions thereafter. Clear fluid. + movement, no vaginal bleeding. Upon arrival, ctx every few minutes and in significant pain. complicated by h/o section. Patient had been contemplating whether to try TOLAC or repeat , and was hoping to deliver vaginally if she went into labor naturally. Allergies Allergy/AdvReac Type Severity Reaction Status Date / Time No Known Allergies Allergy Verified 08/05/20 02:19 Home Medications Medication Instructions Recorded Confirmed Type Fluticasone Propionate (Nasal) 2 spry [place] DAILY #0 12/07/16 07/31/20 History (Flonase Allergy Relief) Multivit/Min/Iron/Fol Ac/Pren 1 tab PO DAILY #0 tab 12/07/16 07/31/20 History ( Vitamin) Sertraline (Zoloft) 100 mg PO DAILY #0 tab 12/07/16 07/31/20 History nystatin-triamcinolone 100,000 1 applic TOPICAL BID 14 Days #30 g 07/31/20 07/31/20 Rx unit/g-0.1 % topical cream Patient History Medical History 40 weeks gestation of Depression History of chicken pox Hypercholesteremia Obsessive compulsive disorder Other specified complication, antepartum Surgical History S/P section S/P myringotomy with insertion of tube S/P wisdom tooth extraction Family History Father Hypertension Grandmother (Maternal) Thyroid disease Denies family history of Ovarian cancer Breast cancer Colorectal cancer Social History (Updated 12/29/19 @ 09:12 by Caitlin Smyth) Smoking Status: Never smoker marital status: marital status details: Mert Loredo (32) [phone] Current Living Situation: Spouse and Family Current Living Situation Comment: lives with spouse, son, dog current occupational status: employed 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 Invo luntarily pushing. Constitutional: WD/WN, vitals as above Respiratory: normal respiratory effort, lungs clear to auscultation no respiratory distress Cardiovascular: Rate/Rhythm: regular rate and regular rhythm Gastrointestinal (Abdomen): Inspection/Auscultation: abdomen normal to inspection Percussion/Palpation: abdomen soft; abdomen nontender Gravid. No s/s chorio or abruption. Skin: no rashes, warm and dry Psychiatric: A+Ox3, euthymic affect Monitoring External Monitor FHT Cat 1 Dennis Q 2 min Coding Level of Care Code None Diagnoses Encounter for supervision of normal in multigravida, antepartum Z34.80 Previous delivery affecting , antepartum O34.219
[2020-08-05 03:13] LABS: Hematocrit (blood only) 32.9 % (37-47); Hemoglobin 11.2 g/dL (12.0-16.0); Mean Corpuscular Hemoglobin 29.4 pg (25-34); Mean Corpuscular Volume 86.4 fL (80-100); Mean Platelet Volume 10.8 fL (7.4-10.4); Platelet Count 155 K/uL (130-400); RDW Coefficient of Variation 13.7 % (11.5-14.5); RDW Standard Deviation 43.2 fL (36.4-46.3); Red Blood Count 3.81 M/uL (4.2-5.4); White Blood Count 9.43 K/uL (4.8-10.8)
--- NOTE | 2020-08-05 03:21 | Delivery Summary ---
Vaginal Delivery Summary Date of Service August 05, 2020 Vaginal Delivery Summary Vaginal Delivery Summary: Pre-delivery diagnoses: 35yo @ 37 6/7, spontaneous labor, h/o CS x 1 Post-delivery diagnoses: same Procedure: vaginal after section, repair of left vaginal tear, removal of left vaginal cyst Surgeon: Terri Tamayo DO Complications: none Findings: Viable male . Apgars: 7/7. Weight pending, please see nursery records Estimated blood loss: 300ml Description of delivery: The patient presented to L&D feeling active urge to push, cervical exam on arrival was anterior lip/1+ station. Unable to adequately treat for GBS+ due to quick delivery. She then began to push. She spontaneously vaginally delivered a viable from the cephalic presentation. The head delivered in BRINA position. The anterior shoulder delivered, followed by the posterior shoulder, followed by the body. No nuchal cord. The baby was placed on mother's abdomen and a spontaneous cry was heard. Delayed cord clamping was employed, and the cord was doubly clamped and cut. A segment was retained for cord gases. Cord blood was obtained. The placenta was delivered spontaneously intact with a 3-vessel cord. The uterus and vagina were swept of clots and debris. Previous uterine incision palpated during uterus sweep, found to be intact on exam. IV pitocin was given. The uterus became firm. The cervix, vagina, and perineum were inspected and a left vaginal laceration was noted. 1% lidocaine was infused and this was repaired with a running locked 3-0 vicryl stitch. Excellent hemostasis was observed. Patient also requesting removal of left vaginal cyst - this had been noted during the , and appeared to be a simple 2cm cyst in the left inner labia minora. This was infused with 1% lidocaine, and the outer cell layer was grasped and incised. The cyst was bluntly dissected with a Raytec sponge from its surrounding tissue, and then popped for clear mucus-like fluid. Attempt was made to remove remaining cyst wall, however given recent delivery and difficulty even determining what was cyst wall and what was vaginal wall, this effort was stopped. Excellent hemostasis in that area, no sutures needed. Nothing ladonna ilable to send to pathology. The mother and baby are recovering in stable and good condition in the room. Sponge, needle and instrument counts were correct x 2. DO MICHELLE WangOOAna Maria [facility] [place] Vaginal Delivery Codes: 98773 global code for the antepartum, delivery, and post- Delivery Type Details:
[2020-08-05] MEDS ORDERED: SUPERCREAM 0.870% 15 GM JAR EXT PRN (03:33)
[2020-08-05] MEDS ORDERED: DIPHTHERIA/TETANUS/PERTUSSIS 0.5 ML SYR/VIAL IM ONE (03:33)
[2020-08-05] MEDS ORDERED: BENZOCAINE 20% AER SPR 82.5 GM CAN EXT PRN (03:33)
[2020-08-05] MEDS ORDERED: ACETAMINOPHEN 325 MG TAB PO PRN (03:33)
[2020-08-05] MEDS ORDERED: HYDROCORTISONE ACETATE 25 MG SUPP PR PRN (03:33)
[2020-08-05] MEDS ORDERED: oxyCODONE/ACETAMINOPHEN 5mg/325mg TAB PO PRN (03:33)
[2020-08-05 03:36] LABS: Base Excess Cord Venous Blood -4.5 mEq/L (-7.7-1.9); Cord Venous Blood HCO3 21 mmol/L (18.4-26.8); Cord Venous Blood PCO2 40 mmHg (30.4-57.2); Cord Venous Blood PO2 24 mmHg (14.1-43.3); Cord Venous Blood pH 7.34 (7.20-7.44); O2 Saturation Cord Venous Bld < 68.0 % (<68)
[2020-08-05 03:39] LABS: CO2 Cord Arterial Blood 55 mmHg (39.1-73.5); HCO3 Cord Arterial Blood 23 mmol/L (19.7-28.5); PO2 Cord Arterial Blood 21 mmHg (4.1-31.7); pH Cord Arterial Blood 7.24 (7.1-7.38)
[2020-08-05 03:40] LABS: Oxygen Sat Cord Arterial Blood < 60.0 % (<60)
[2020-08-05] MEDS ORDERED: PENICILLIN G POTASSIUM 3 MU in DEXTROSE 5% 100 ML IV PRN (04:00)
[2020-08-05] MEDS: IBUPROFEN 600 MG TAB PO PRN ×3 (04:32→20:58)
[2020-08-05] MEDS: PRENATAL VITAMIN 1 TAB PO SCH (08:07)
[2020-08-05] MEDS: DOCUSATE SODIUM 100 MG CAP PO SCH ×2 (08:08→20:59)
[2020-08-05] MEDS: FLUTICASONE PROPIONATE NA SPR 16 GM BTL SCH (08:46)
[2020-08-05] MEDS: SERTRALINE HCL 100 MG TABLET PO SCH (08:46)
[2020-08-06 05:55] LABS: Hematocrit (blood only) 29.3 % (37-47); Hemoglobin 9.5 g/dL (12.0-16.0)
--- NOTE | 2020-08-06 06:21 | Obstetrical Progress Note ---
Date of Service August 06, 2020 Assessment & Plan (1) , delivered: stable, doing well. routine pp care. f/u 6 wk pp check. Day #:: 1 Subjective Ambulation: ambulating normally Voiding: no voiding problems Diet Tolerance:: regular diet Lochia:: Small Feeding Type:: breast feeding denies pain issues. doing well overall. thinks has to stay until tomorrow due to inadeq treated for gbs before rapid delivery. Physical Exam Constitutional WD/WN, vitals as above Respiratory normal respiratory effort, lungs clear to auscultation Cardiovascular Rate/Rhythm: regular rate and regular rhythm Gastrointestinal (Abdomen) Inspection/Auscultation: abdomen normal to inspection Percussion/Palpation: abdomen soft; abdomen nontender Fundus firm 2cm down Musculoskeletal nt calves no edema Neurologic grossly normal Psychiatric A+Ox3, euthymic affect Results & Data ([facility]) Vital Signs (Past 12 Hours) Vital Signs Temp Pulse Resp BP 08/05/20 23:30 98.1 F 75 18 100/61 08/05/20 19:24 98.2 F 80 20
[2020-08-06] MEDS: PRENATAL VITAMIN 1 TAB PO SCH (09:14)
[2020-08-06] MEDS: IBUPROFEN 600 MG TAB PO PRN ×2 (09:14→20:17)
[2020-08-06] MEDS: DOCUSATE SODIUM 100 MG CAP PO SCH ×2 (09:14→20:17)
[2020-08-06] MEDS: FLUTICASONE PROPIONATE NA SPR 16 GM BTL SCH (09:15)
[2020-08-06] MEDS: SERTRALINE HCL 100 MG TABLET PO SCH (10:16)
[2020-08-06] MEDS ORDERED: bisacodyL 5 MG TABEC PO SCH (20:00)
[2020-08-07] MEDS ORDERED: bisacodyL 10 MG SUPP PR PRN (06:00)
--- NOTE | 2020-08-07 07:22 | Obstetrical Progress Note ---
Date of Service August 07, 2020 Assessment & Plan (1) examination following vaginal delivery: (2) , delivered: stable, doing well, ready for d/c home, instructions reviewd. f/u 6 wk pp check. rh pos, ri, . Day #:: 1 Subjective Ambulation: ambulating normally Voiding: no voiding problems Diet Tolerance:: regular diet Lochia:: Small Feeding Type:: breast feeding some more cramps, helped with meds. some upper back pain she feels is musculoskeletal. no urinary sx. Physical Exam Constitutional WD/WN, vitals as above Respiratory normal respiratory effort, lungs clear to auscultation Cardiovascular Rate/Rhythm: regular rate and regular rhythm Gastrointestinal (Abdomen) Inspection/Auscultation: abdomen normal to inspection Percussion/Palpation: abdomen soft Fundus firm 2cm down Musculoskeletal nt calves no edema Neurologic grossly normal Psychiatric A+Ox3, euthymic affect Results & Data ([facility]) Vital Signs (Past 12 Hours) Vital Signs Temp Pulse Resp BP Pulse Ox 08/06/20 23:15 98.4 F 95 H 18 106/70 97
[2020-08-07] MEDS: IBUPROFEN 600 MG TAB PO PRN (08:00)
[2020-08-07] MEDS: DOCUSATE SODIUM 100 MG CAP PO SCH (08:00)
[2020-08-07] MEDS: SERTRALINE HCL 100 MG TABLET PO SCH (08:01)
[2020-08-07] MEDS: FLUTICASONE PROPIONATE NA SPR 16 GM BTL SCH (08:01)
[2020-08-07] MEDS: PRENATAL VITAMIN 1 TAB PO SCH (08:01)
== END 2020-08-07 11:35 | disposition home or self-care (01) | DRG 768 ==
LOC: OPB 01:39 → 4S1 01:43 → 4S2 07:16